=== PATIENT | male | born 1955 | race Caucasian/White ===

== ENCOUNTER 2016-09-15 08:21 | Emergency (ER) | payer SELFPAY ==
[~2016-09-15 08:21] MED LIST: FLEXERIL10 MG PO; FLEXERIL5 MG PO; NOHOMEMEDS; TYLENOL WITH C1 EACH PO; VICODIN 5-3001 EACH PO
[2016-09-15 09:21] LABS: EOSINOPHIL (%) 0.7 % (0-5); EOSINOPHIL COUNT 0.1 K/uL (0-0.3); HEMATOCRIT 29.2 % (38.0-50.0); IMMATURE GRANULOCYTE (%) 0.6 % (0.0-0.7); LYMPHOCYTE COUNT 1.8 K/uL (1.0-2.8); MCH 31.2 PG (29.0-34.0); MCHC 33.2 G/DL (30.0-36.0); MCV 93.9 FL (86-99); MEAN PLAT.VOLUME 8.9 uM^3 (9.0-12.4); MONOCYTE (%) 3.2 % (3-12); MONOCYTE COUNT 0.6 K/uL (0-0.8); NEUTROPHIL (%) 85.3 % (45-76); NEUTROPHIL COUNT 14.9 K/uL (1.8-6.4); PLATELET COUNT 234 K/uL (156-360); RBC DIS.WIDTH-CV 12.7 % (11.8-14.6); RBC DIS.WIDTH-SD 41.9 % (39-53); RED BLOOD COUNT 3.11 M/uL (4.00-5.50); WHITE BLOOD COUNT 17.4 K/uL (4.1-10.2)
[2016-09-15 09:29] LABS: ADD MIUA? YES; BILIRUBIN NEGATIVE; BLOOD LARGE; GLUCOSE (STRIP) 100; KETONES NEGATIVE; LEUKOCYTES TRACE; NITRITE NEGATIVE; PH, URINE 6.5 (5-8); PROTEIN (STRIP) 30; UROBILINOGEN 0.2 MG/DL (0.2-1.0)
[2016-09-15 09:33] LABS: COLOR LT.RED ((YELLOW))
[2016-09-15 09:34] LABS: AMYLASE 122 IU/L (1-118); CHLORIDE 113 mEq/L (99-109); POTASSIUM 3.3 mEq/L (3.7-5.4); SODIUM 139 mEq/L (136-147)
[2016-09-15 09:35] LABS: GLUCOSE 215 mg/dL (70-99)
[2016-09-15 09:37] LABS: ANION GAP 11 MEQ/L (2-14)
[2016-09-15 09:38] LABS: SERUM ETHYL ALCOHOL < 10 mg/dL
[2016-09-15 09:38] LABS: BASE EXCESS -11.1 mEq/L (-3 to +3); BICARBONATE 17.7 mEq/L (22-26); CARBOXY HGB 1.8 % (0-5); COMMENTS - BLOOD GASES A+C+; METHEMOGLOBIN 1.2 % (0-1.5); PCO2 52 mm Hg (35-45); PO2 546 mm Hg (80-100); SITE RR; pH 7.14 (7.35-7.45)
[2016-09-15 09:39] LABS: AMPHETAMINE NEGATIVE (500 ng/mL); BARBITURATES NEGATIVE (200 ng/mL); BENZODIAZEPINES NEGATIVE (150 ng/mL); COCAINE NEGATIVE (150 ng/mL); INTERNAL CONTROLS VALID? YES; METHADONE NEGATIVE (200 ng/mL); METHAMPHETAMINE NEGATIVE (500 ng/mL); OPIATES (MORPHINE) NEGATIVE (100 ng/mL); OXYCODONE NEGATIVE (100 ng/mL); PHENCYCLIDINE NEGATIVE (25 ng/mL); PROPOXYPHENE NEGATIVE (300 ng/mL); THC CANNABINOIDS NEGATIVE (50 ng/mL); TRICYCLIC ANTIDEPRESSANTS NEGATIVE (300 ng/mL)
[2016-09-15 09:39] LABS: GFR ESTIMATE (CALCULATED) > 59 mL/min/
[2016-09-15 09:39] LABS: DEVICE 840VENT; FI02 100 %; MECHANICAL RATE 15 resp/min; MODE AC; PEEP 5 CM/H20; TIDAL VOLUME 450 ML; TOTAL RESP RATE 18 resp/min
[2016-09-15 09:40] LABS: UREA NITROGEN (BUN) 13 mg/dL (9-23)
[2016-09-15 09:42] LABS: LIPASE 351 U/L (1.0-51.0)
[2016-09-15 09:47] LABS: SPECIFIC GRAVITY 1.052 (1.000-1.030)
[2016-09-15 10:05] LABS: BACTERIA NONE SEEN; CASTS NONE SEEN /LPF; CRYSTALS NONE SEEN; EPITHELIAL CELLS NONE SEEN; MUCUS NONE SEEN; RED BLOOD CELLS TNTC /HPF (0-5); UCUL ADDED? NO; WHITE BLOOD CELLS NONE SEEN /HPF (0-5)
[2016-09-15 10:28] LABS: CHLORIDE 114 mEq/L (99-109); POTASSIUM 3.4 mEq/L (3.7-5.4); SODIUM 140 mEq/L (136-147)
[2016-09-15 10:30] LABS: GLUCOSE 204 mg/dL (70-99); HEMATOCRIT 35.8 % (38.0-50.0); MCH 31.4 PG (29.0-34.0); MCHC 33.5 G/DL (30.0-36.0); MCV 93.7 FL (86-99); MEAN PLAT.VOLUME 9.2 uM^3 (9.0-12.4); PLATELET COUNT 197 K/uL (156-360); RBC DIS.WIDTH-CV 13.4 % (11.8-14.6); RBC DIS.WIDTH-SD 43.5 % (39-53); RED BLOOD COUNT 3.82 M/uL (4.00-5.50); WHITE BLOOD COUNT 18.9 K/uL (4.1-10.2)
[2016-09-15 10:31] LABS: ANION GAP 11 MEQ/L (2-14)
[2016-09-15 10:33] LABS: GFR ESTIMATE (CALCULATED) > 59 mL/min/
[2016-09-15 10:34] LABS: UREA NITROGEN (BUN) 13 mg/dL (9-23)
[2016-09-15 10:36] LABS: TROP-I INTERPRETATION POSITIVE; TROPONIN-I 1.78 ng/mL (0.0-0.30)
[2016-09-15 11:05] LABS: INTER. NORMALIZED RATIO 1.3; PROTHROMBIN TIME 12.8 (9.2-11.2); PTT 30.1 (25-32)
== END 2016-09-15 11:55 | disposition short-term general hospital (02) ==
LOC: TRA 08:21
PROVIDERS: Emergency Medicine; Surgery
PROC: 5A1935Z Respiratory Ventilation, Less than 24 Consecutive Hours (ICD-10-PCS; principal; 2016-09-15)
PROC: 0HQ0XZZ Repair Scalp Skin, External Approach (ICD-10-PCS; principal; 2016-09-15)
PROC: 30233N1 Transfusion of Nonautologous Red Blood Cells into Peripheral Vein, Percutaneous Approach (ICD-10-PCS; principal; 2016-09-15)
PROC: 0BH17EZ Insertion of Endotracheal Airway into Trachea, Via Natural or Artificial Opening (ICD-10-PCS; principal; 2016-09-15)
DX: S06.5X0A Traumatic subdural hemorrhage without loss of consciousness, initial encounter (principal); S12.690A Other displaced fracture of seventh cervical vertebra, initial encounter for closed fracture; S32.392A Other fracture of left ilium, initial encounter for closed fracture; S01.01XA Laceration without foreign body of scalp, initial encounter; V09.9XXA Pedestrian injured in unspecified transport accident, initial encounter; Y92.413 State road as the place of occurrence of the external cause; T79.4XXA Traumatic shock, initial encounter; S80.211A Abrasion, right knee, initial encounter; S80.212A Abrasion, left knee, initial encounter; T14.8 Other injury of unspecified body region
CPT/HCPCS: 36600; 70450; 71010; 71260; 72125; 72129; 72132; 73522; 73552; 73560; 74000; 74177; 80048; 80048 91; 81003; 82150; 82803; 83690; 84484; 85025; 85027; 85610; 85730; 86850; 86900; 86901; 86920; 90832; 90837; 93005; 94002; 99281; 99285; G0480; P9016